=== PATIENT | female | born 1960 | race Caucasian/White ===

== ENCOUNTER 2016-12-08 06:17 | Day surgery (SDC) | payer BC ==
--- NOTE | ~2016-12-08 | EGD ---
EGD REPORT [facility] [address] [place]. [address] NAME: ARIELLA ARORA : [birth year] STATUS : REG [facility] [place] PAT#: [id number] AGE: 56 ADM/REG DATE : 12/08/16 MR#: [id number] REPORT SERV DATE: 12/08/16 DICTATED BY: PRASANNA REA DATE: 12/08/16 REPORT STATUS : Draft TRANSCRIBED BY: [facility] DATE: 12/08/16 [facility] Patient Name: Ariella Arora Date of : 1960 Attending MD: PRASANNA REA MD Procedure Date No Time: 12/08/2016 Procedure: Upper GI endoscopy Indications: Heartburn, Diarrhea, Nausea with vomiting, Regurgitation Referring MD: RUFINA MEDLEY MD Medicines: Propofol per Anesthesia Complications: No immediate complications. Estimated blood loss: None. Procedure: Pre-Anesthesia Assessment: - After reviewing the risks and benefits, the patient was deemed in satisfactory condition to undergo the procedure. - Prior to the procedure, a History and Physical was performed, and patient medications and allergies were reviewed. The patient's tolerance of previous anesthesia was also reviewed. The risks and benefits of the procedure and the sedation options and risks were discussed with the patient. All questions were answered, and informed consent was obtained. Prior Anticoagulants: The patient has taken no previous anticoagulant or antiplatelet agents. ASA Grade Assessment: III - A patient with severe systemic disease. After reviewing the risks and benefits, the patient was deemed in satisfactory condition to undergo the procedure. After obtaining informed consent, the endoscope was passed under direct vision. Throughout the procedure, the patient's blood pressure, pulse, and oxygen saturations were monitored continuously. The GIF [id number] was introduced through the mouth, and advanced to the jejunum. The upper GI endoscopy was accomplished without difficulty. The patient tolerated the procedure well. Findings: The examined esophagus was normal. The gastric antrum was normal although there was a small amount of bile staining. Biopsies were taken with a cold forceps for histology. Estimated blood loss: none. The examined duodenum was normal. Biopsies were taken with a cold forceps for histology. Estimated blood loss: none. Impression: - Normal esophagus. EGD REPORT [address] [address] NAME: ARIELLA ARORA : [birth year] STATUS : REG [facility] [place] PAT#: [id number] AGE: 56 ADM/REG DATE : 12/08/16 MR#: [id number] REPORT SERV DATE: 12/08/16 DICTATED BY: PRASANNA REA DATE: 12/08/16 REPORT STATUS : Draft TRANSCRIBED BY: [employer] DATE: 12/08/16 - Normal antrum. Biopsied. - Normal examined duodenum. Biopsied. - Non-erosive esophageal reflux (NERD) disease present. Recommendation: - Discharge patient to home (ambulatory). - Return to previous diet. Eat small, more frequent meals and avoid eating within 4 hours of bedtime. - Continue present medications. - Discontinue Prilosec (omeprazole). - Begin Protonix (pantoprazole) 40 mg with evening meal. - Begin Pepcid AC 10 mg , 2 at bedtime. - Await pathology results. - We will schedule a gastric empyting scan. - Perform a colonoscopy today. - Return to GI clinic in 3 weeks. - Patient has a contact number available for emergencies. The signs and symptoms of potential delayed complications were discussed with the patient. Return to normal activities tomorrow. Written discharge instructions were provided to the patient. Procedure Code(s): --- Professional --- 77942, Esophagogastroduodenoscopy, flexible, transoral; with biopsy, single or multiple Diagnosis Code(s): --- Professional --- K21.9, Gastro-esophageal reflux disease without esophagitis R12, Heartburn R19.7, Diarrhea, unspecified R11.2, Nausea with vomiting, unspecified R11.10, Vomiting, unspecified CPT copyright 2013 [employer]. All rights reserved. The codes documented in this report are preliminary and upon filling technician review may be revised to meet current compliance requirements. PRASANNA REA MD 12/08/2016 8:35 AM This report has been signed electronically. Number of Addenda: 0 Note Initiated On: 12/08/2016 8:05 AM Scope Withdrawal Time 0 hours 0 minutes 0 seconds EGD REPORT [facility] [address] [place]. [address] NAME: ARIELLA ARORA : [birth year] STATUS : REG [facility] [place] PAT#: [id number] AGE: 56 ADM/REG DATE : 12/08/16 MR#: [id number] REPORT SERV DATE: 12/08/16 DICTATED BY: PRASANNA REA DATE: 12/08/16 REPORT STATUS : Draft TRANSCRIBED BY: [facility] DATE: 12/08/16 [facility] [address] [place] [id number]
--- NOTE | ~2016-12-08 | EGD ---
EGD REPORT [facility] [address] [place]. [address] NAME: ARIELLA ARORA : [birth year] STATUS : REG [facility] [place] PAT#: [id number] AGE: 56 ADM/REG DATE : 12/08/16 MR#: [id number] REPORT SERV DATE: 12/08/16 DICTATED BY: PRASANNA REA DATE: 12/08/16 REPORT STATUS : Draft TRANSCRIBED BY: [facility] DATE: 12/08/16 [facility] Patient Name: Ariella Arora Date of : 1960 Attending MD: PRASANNA REA MD Procedure Date No Time: 12/08/2016 Procedure: Colonoscopy Indications: Chronic diarrhea Referring MD: RUFINA MEDLEY MD Medicines: Propofol per Anesthesia Complications: No immediate complications. Estimated blood loss: None. Procedure: Pre-Anesthesia Assessment: - After reviewing the risks and benefits, the patient was deemed in satisfactory condition to undergo the procedure. - Prior to the procedure, a History and Physical was performed, and patient medications and allergies were reviewed. The patient's tolerance of previous anesthesia was also reviewed. The risks and benefits of the procedure and the sedation options and risks were discussed with the patient. All questions were answered, and informed consent was obtained. Prior Anticoagulants: The patient has taken no previous anticoagulant or antiplatelet agents. ASA Grade Assessment: III - A patient with severe systemic disease. After reviewing the risks and benefits, the patient was deemed in satisfactory condition to undergo the procedure. After I obtained informed consent, the scope was passed under direct vision. Throughout the procedure, the patient's blood pressure, pulse, and oxygen saturations were monitored continuously. The CF [id number] was introduced through the anus and advanced to the terminal ileum, with identification of the appendiceal orifice and IC valve. The colonoscopy was performed without difficulty. The ileocecal valve, appendiceal orifice and terminal ileum were photographed. The patient tolerated the procedure well. The quality of the bowel preparation was adequate. The bowel preparation used was SUPREP. Scope withdrawal time was greater 7 minutes. Findings: The perianal and digital rectal examinations were normal. Pertinent negatives include normal sphincter tone. The terminal ileum appeared normal. Non-bleeding internal hemorrhoids were found during retroflexion and EGD REPORT [address] [address] NAME: ARIELLA ARORA : [birth year] STATUS : REG [facility] PAT#: [id number] AGE: 56 ADM/REG DATE : 12/08/16 MR#: [id number] REPORT SERV DATE: 12/08/16 DICTATED BY: PRASANNA REA DATE: 12/08/16 REPORT STATUS : Draft TRANSCRIBED BY: [employer] DATE: 12/08/16 were small and Grade I (internal hemorrhoids that do not prolapse). A few small-mouthed diverticula were found in the entire colon. The descending colon and ascending colon appeared normal. Biopsies were taken with a cold forceps for histology. Estimated blood loss: none. The exam was otherwise without abnormality. Impression: - The examined portion of the ileum was normal. - Non-bleeding internal hemorrhoids. - Mild diverticulosis in the entire examined colon. - The descending colon and ascending colon are normal. Biopsied. - The examination was otherwise normal. - Irritable bowel syndrome with diarrhea. Recommendation: - Discharge patient to home (ambulatory). - Return to previous diet. - Continue present medications. - Begin Metamucil one tablespoon daily to bulk stool. - Begin Align probiotic daily. - Await pathology results. - Collect Hemoccults on three spontaneously passed stools annually. - Repeat colonoscopy in 10 years for screening purposes. - Patient has a contact number available for emergencies. The signs and symptoms of potential delayed complications were discussed with the patient. Return to normal activities tomorrow. Written discharge instructions were provided to the patient. Procedure Code(s): --- Professional --- 47686, Colonoscopy, flexible, proximal to splenic flexure; with biopsy, single or multiple Diagnosis Code(s): --- Professional --- K64.0, First degree hemorrhoids K58.0, Irritable bowel syndrome with diarrhea K57.30, Diverticulosis of large intestine without perforation or abscess without bleeding K52.9, Noninfective gastroenteritis and colitis, unspecified CPT copyright 2013 [employer]. All rights reserved. The codes documented in this report are preliminary and upon sequins stringer review may be revised to meet current compliance requirements. EGD REPORT [facility] [address] [place] [address] NAME: ARIELLA ARORA : [birth year] STATUS : REG [facility] PAT#: [id number] AGE: 56 ADM/REG DATE : 12/08/16 MR#: [id number] REPORT SERV DATE: 12/08/16 DICTATED BY: PRASANNA REA. DATE: 12/08/16 REPORT STATUS : Draft TRANSCRIBED BY: [employer] DATE: 12/08/16 PRASANNA REA MD 12/08/2016 8:56 AM This report has been signed electronically. Number of Addenda: 0 Note Initiated On: 12/08/2016 7:59 AM Scope Withdrawal Time 0 hours 7 minutes 9 seconds [address] [place] [address]
[~2016-12-08 06:17] MED LIST: ALLERGY MED PO; ASA5GR PO; ASAB PO; CLARIT10 PO; DSS; MIRAPEX250 PO; NORCO1 TAB; PRILO PO; PRIN10 PO; PRINZIDE1 TAB PO; REQUIP25 PO; SYN.05 PO; TOPAMAX25 PO; X25 PO; ZANTAC 150 PO; ZESTORETIC1 TAB PO; ZOFRAN ODT4 MG PO; [UNRECOGNIZED DRUG - OTHER] PO
== END 2016-12-08 23:59 | disposition home or self-care (01) ==
LOC: DMU 06:17
PROVIDERS: Internal Medicine Gastroenterology
PROC: 0DB98ZX Excision of Duodenum, Via Natural or Artificial Opening Endoscopic, Diagnostic (ICD-10-PCS; 2016-12-08)
PROC: 0DB68ZX Excision of Stomach, Via Natural or Artificial Opening Endoscopic, Diagnostic (ICD-10-PCS; 2016-12-08)
PROC: 0DBK8ZX Excision of Ascending Colon, Via Natural or Artificial Opening Endoscopic, Diagnostic (ICD-10-PCS; principal; 2016-12-08 08:00)
PROC: 0DBM8ZX Excision of Descending Colon, Via Natural or Artificial Opening Endoscopic, Diagnostic (ICD-10-PCS; 2016-12-08 08:00)
DX: K64.0 First degree hemorrhoids (principal); K58.0 Irritable bowel syndrome with diarrhea; K57.30 Diverticulosis of large intestine without perforation or abscess without bleeding; K52.9 Noninfective gastroenteritis and colitis, unspecified; K21.9 Gastro-esophageal reflux disease without esophagitis; R12 Heartburn; R11.2 Nausea with vomiting, unspecified; I10 Essential (primary) hypertension; I25.2 Old myocardial infarction; G47.33 Obstructive sleep apnea (adult) (pediatric); E03.9 Hypothyroidism, unspecified; Z90.49 Acquired absence of other specified parts of digestive tract; Z86.73 Personal history of transient ischemic attack (TIA), and cerebral infarction without residual deficits; Z97.5 Presence of (intrauterine) contraceptive device; Z98.891 History of uterine scar from previous surgery; Z98.890 Other specified postprocedural states; Z99.89 Dependence on other enabling machines and devices; Z79.82 Long term (current) use of aspirin; Z79.899 Other long term (current) drug therapy
CPT/HCPCS: 84703; 88305